=== PATIENT | female | born 1985 | race Caucasian/White ===

== ENCOUNTER 2020-06-22 08:59 | Outpatient (REF) | payer MEDICAID, SELFPAY ==
[2020-06-23 05:05] LABS: CT PCR NOT DETECTED (Not Detect.); NG PCR NOT DETECTED (Not Detect.)
[2020-06-25 02:16] LABS: HPV mRNA E6/E7 Not Detected (Not Detected)
== END 2020-06-22 09:00 | disposition home or self-care (01) ==
LOC: HO.LAB 08:59
PROVIDERS: Visit Provider Obstetrics & Gynecology
DX: Z01.411 Encounter for gynecological examination (general) (routine) with abnormal findings (principal); N92.1 Excessive and frequent menstruation with irregular cycle; N84.0 Polyp of corpus uteri
CPT/HCPCS: 87491; 87591; 87624; 88142; 99212

== ENCOUNTER → 2020-08-03 10:43 | Outpatient (BNVA) | payer MEDICAID, SELFPAY | PROVIDERS: Visit Provider Obstetrics & Gynecology | DX: N92.1 Excessive and frequent menstruation with irregular cycle (principal); N84.0 Polyp of corpus uteri | CPT/HCPCS: 99212 ==

== ENCOUNTER 2020-08-05 09:04 | Day surgery (SDC) | payer MEDICAID, SELFPAY ==
[2020-07-29 20:19] VITALS: BMI 25.4
[2020-07-29 20:34] VITALS: BMI 41.3
[2020-07-29 20:35] VITALS: BMI 18.8; BMI 41.3
--- NOTE | 2020-08-03 14:03 | HO.ANESPROP2 ---
Documented by User: Estelita Burr 08/03/20 14:16 HPI - Anesthesia Eval Consult details Narrative: 35yo F for D&C Diagnostic Hysteroscopy,poss polypectomy/myomectomy [facility] Past Medical History Medical History Anemia Surgical History Surgical History History of bilateral tubal ligation Social History Social History Alcohol intake: current Alcohol intake frequency: holidays/special occasions only Smoking Status: Never smoker Use of substances other than those prescribed or required for medical reasons: Yes Substance Use Type: Marijuana Substance Use Frequency: Daily Advance Directives: No Advance Directives Information Provided: No Advance Directives on File: No Sexual orientation: Straight/Heterosexual Gender identity: female Meds Allergies Allergy/AdvReac Type Severity Reaction Status Date / Time No Known Allergies AdvReac Unknown UNKNOWN Verified 07/29/20 20:22 Home Medications Medication Instructions Recorded Confirmed Type calcium phos,dibas-vitamin D3 1 tab PO DAILY 07/29/20 08/03/20 History [Vitamin D (with calcium)] Exam Exam Date and Time: August 03, 2020 1403 Height,Weight and Vital Signs: Height 5 ft 3 in Weight 48.081 kg Pertinent Lab Results Pertinent Lab Results: Laboratory Tests 04/21/20 09:30 WBC 9.7 Hgb 13.4 Hct 40.0 Plt Count 232 Assessment and Plan Assessment Anesthesia Assessment: Chart Reviewed Documented by User: Jamil Briceno 08/05/20 11:09 PMF Past Medical History Medical History Anemia Family History Family history of problems with anesthesia: No Surgical History Surgical History History of bilateral tubal ligation History of Problems with Anesthesia: No Social History Social History (Reviewed 08/03/20 @ 14:15 by Estelita Wahl Alcohol intake: current Alcohol intake frequency: holidays/special occasions only Smoking Status: Never smoker Use of substances other than those prescribed or required for medical reasons: Yes Substance Use Type: Marijuana Substance Use Frequency: Daily Advance Directives: No Advance Directives Information Provided: No Advance Directives on File: No Sexual orientation: Straight/Heterosexual Gender identity: female Meds Allergies Allergy/AdvReac Type Severity Reaction Status Date / Time No Known Allergies AdvReac Unknown UNKNOWN Verified 07/29/20 20:22 Home Medications Medication Instructions Recorded Confirmed Type calcium phos,dibas-vitamin D3 1 tab PO DAILY 07/29/20 08/03/20 History [Vitamin D (with calcium)] Assessment and Plan Assessment Anesthesia Assessment: Anesthesia Plan Discussed and Chart Reviewed Final Anesthetic Review NPO: Yes ASA Class: II Final Preanesthetic Review: No Changes in Pt Med Stat, Meds/Allgs Chart Reviewed, Consent Obtained/Reviewed and Anes Risks/Benef Reviewed Patient Risk: Low Procedure Risk: Low Anesthetic Plan Anesthetic Plan: GA Disposition: Standard PACU
[2020-08-05] VITALS (10 sets, daily range): BP systolic 91–108; BP diastolic 48–70; PULSE 59–76; RESP 16–18; TEMP 36.4–36.8; O2SAT 96–100
[2020-08-05 09:29] LABS: UPreg QC Valid YES; Urine Pregnancy NEGATIVE (NEGATIVE)
[2020-08-05] MEDS: Lactated Ringers 1,000 ML 100 ML IVCONT (09:34)
--- NOTE | 2020-08-05 10:51 | MHC.SHP ---
Pre-Procedural Eval Section A The patient is an INPATIENT: No Changes since office visit: No Cold of Flu in the past 2 weeks, No New Medical Problems, No Changes in Medication and No Patient answered all questions The History & Physical has been completed within 30 days and I have reviewed it.: Yes Section B Chief Complaint: frequent bleeding Allergies: Allergies Allergy/AdvReac Type Severity Reaction Status Date / Time No Known Allergies AdvReac Unknown UNKNOWN Verified 07/29/20 20:22 Plan Diagnosis/Plan: Unchanged Patient has been examined and remains a candidate for the planned procedure
--- NOTE | 2020-08-05 11:47 | PM.OP ---
Brief Operative Note Date of Service: 08/05/20 Pre-op diagnosis: Endometrial polyp by US Post-op diagnosis: same Procedure: Hysteroscopy D&C, Polypectomy Surgeon: Davin Manzano MD Anesthesia: MAC Estimated blood loss (mL): 0 Pathology: other (Endometrial Scrapping. Polyp) Condition: stable Disposition: PACU
--- NOTE | 2020-08-05 11:48 | W.PM.OPN ---
Operative Note Operative Note Date of Service: 08/05/20 Narrative: Preop Diagnosis: Endometrial polyp by US Operation: Diagnostic Hysteroscopy, Dilataion & Curettage and polypectomy Post Op Diagnosis: Endometrial Polyp QBL: Minimal Anesthesia: MAC Surgeon: Davin Manzano MD Insurance Law Specialist: None Complication: None Pathology: Endometrial Scrapings, Endometrial polyp Complication: None Pathology: Endometrial Scrapings, Endometrial polyp Procedure: The patient was put in the dorsal lithotomy position, scrubbed, and draped in the usual manner. A sterile speculum was inserted in the patient's vagina. The anterior lip of the cervix was grasped with a single tooth tenaculum. The cervix was dilated up to 5 mm, then the scope was inserted in the patient's uterus. Inspection revealed endometrial polyp. The Myosure Reach device was used; it was introduced through the operative channel and polypectomy done with no complications. At the end of the procedure, all instruments were taken out of the patient uterine and vaginal cavity. The single tooth tenaculum was removed and homeostasis was assured using pressure,. The patient tolerated the procedure well and was transferred to the PACU in a stable condition.
[2020-08-05] MEDS: fentaNYL citrate/PF 100 MCG/2 ML VIAL 50 MCG IVPUSH ×2 (12:00→12:20)
[2020-08-05] MEDS: Ketorolac Tromethamine 15 MG/ML VIAL IVPUSH (12:07)
[2020-08-05] MEDS: oxyCODONE HCl Immed Release 5 MG TABLET PO (12:08)
[2020-08-05] MEDS: ondansetron HCL 4 MG/2 ML VIAL IVPUSH (12:38)
--- NOTE | 2020-08-05 13:21 | HO.POSTANES ---
Post Anesthesia Evaluation Post Anesthesia Evaluation Vital Signs: Vital Signs Temp Pulse Resp BP Pulse Ox 08/05/20 12:56 97.7 F 62 18 100/48 L 100 08/05/20 12:41 59 18 91/51 L 100 08/05/20 12:25 67 18 108/53 L 97 08/05/20 12:20 18 08/05/20 12:11 65 18 102/58 L 96 08/05/20 12:06 63 18 108/70 97 08/05/20 12:01 66 18 100/68 100 08/05/20 12:00 18 08/05/20 11:56 97.6 F 66 18 104/57 L 100 08/05/20 09:35 98.3 F 76 16 94/49 L 98 Anesthesia: General Mental Status: Awake Pain Control: Satisfactory Nausea/Vomiting: None Hydration: Adequate Anesthesia-Related Issues: No Anes. Related Issues
== END 2020-08-05 13:25 | disposition home or self-care (01) ==
PROVIDERS: Visit Provider Obstetrics & Gynecology
PROC: 0UDB8ZX Extraction of Endometrium, Via Natural or Artificial Opening Endoscopic, Diagnostic (ICD-10-PCS; CPT 58558; principal; 2020-08-05 11:10)
DX: N92.1 Excessive and frequent menstruation with irregular cycle (principal); N84.0 Polyp of corpus uteri; D64.9 Anemia, unspecified; Z98.51 Tubal ligation status; F12.90 Cannabis use, unspecified, uncomplicated
CPT/HCPCS: 58558; 81025; 88305; J1885; J2250; J2405; J3010

== ENCOUNTER → 2020-08-08 10:38 | Outpatient (BNVA) | payer MEDICAID, SELFPAY | PROVIDERS: Visit Provider Obstetrics & Gynecology | DX: Z76.89 Persons encountering health services in other specified circumstances (principal) ==

== ENCOUNTER → 2020-08-17 14:09 | Outpatient (BNVA) | payer MEDICAID, SELFPAY | PROVIDERS: Visit Provider Obstetrics & Gynecology | DX: Z76.89 Persons encountering health services in other specified circumstances (principal) ==

== ENCOUNTER → 2020-09-07 10:48 | Outpatient (BNVA) | payer MEDICAID, SELFPAY | PROVIDERS: Visit Provider Obstetrics & Gynecology | DX: Z76.89 Persons encountering health services in other specified circumstances (principal) ==

== ENCOUNTER 2020-09-07 11:23 | Outpatient (REF) | payer MEDICAID, SELFPAY | END 2020-09-07 11:24 | disposition home or self-care (01) | LOC: HO.LAB 11:23 | PROVIDERS: Visit Provider Internal Medicine | DX: Z20.822 Contact with and (suspected) exposure to COVID-19 (principal) | CPT/HCPCS: 36415; C9803; U0003 ==

== ENCOUNTER → 2020-09-12 10:58 | Outpatient (BNVA) | payer MEDICAID, SELFPAY | PROVIDERS: Visit Provider Obstetrics & Gynecology ==

== ENCOUNTER 2020-10-07 10:49 | Outpatient (REF) | payer MEDICAID, SELFPAY ==
--- NOTE | ~2020-10-07 | XR_ITS ---
EXAMINATION: CERVICAL SPINE AND LEFT SHOULDER X-RAY CLINICAL INFORMATION: Injury. Pain. COMPARISON: None TECHNIQUE: 3 views of the cervical spine and 4 views of the left shoulder FINDINGS: Left shoulder: Bone alignment is normal. No fracture or dislocation is seen. Joint spaces are normal. Soft tissues are normal. Cervical spine: Bone alignment is normal. No fracture or dislocation is seen. Prevertebral soft tissues are normal. XR/XR shoulder LT min 2V IMPRESSION: Unremarkable exam.
--- NOTE | ~2020-10-07 | XR_ITS ---
EXAMINATION: CERVICAL SPINE AND LEFT SHOULDER X-RAY CLINICAL INFORMATION: Injury. Pain. COMPARISON: None TECHNIQUE: 3 views of the cervical spine and 4 views of the left shoulder FINDINGS: Left shoulder: Bone alignment is normal. No fracture or dislocation is seen. Joint spaces are normal. Soft tissues are normal. Cervical spine: Bone alignment is normal. No fracture or dislocation is seen. Prevertebral soft tissues are normal. XR/XR cervical spine 3V IMPRESSION: Unremarkable exam.
== END 2020-10-07 10:50 | disposition home or self-care (01) ==
LOC: HO.XRAY 10:49
PROVIDERS: Visit Provider Emergency Medicine
DX: S49.92XA Unspecified injury of left shoulder and upper arm, initial encounter (principal); S19.9XXA Unspecified injury of neck, initial encounter
CPT/HCPCS: 72040; 73030

== ENCOUNTER 2020-10-21 09:45 | Outpatient (REF) | payer MEDICAID, SELFPAY | END 2020-10-21 09:46 | disposition home or self-care (01) | LOC: HO.LAB 09:45 | PROVIDERS: Visit Provider Internal Medicine | DX: Z20.822 Contact with and (suspected) exposure to COVID-19 (principal) | CPT/HCPCS: 36415; C9803; U0003; U0005 ==

== ENCOUNTER 2020-12-14 08:35 | Outpatient (REF) | payer MEDICAID, SELFPAY | END 2020-12-14 08:36 | disposition home or self-care (01) | LOC: HO.LAB 08:35 | PROVIDERS: Visit Provider Obstetrics & Gynecology | DX: Z32.02 Encounter for pregnancy test, result negative (principal); N85.01 Benign endometrial hyperplasia | CPT/HCPCS: 58100; 88305 ==

== ENCOUNTER → 2020-12-28 11:48 | Outpatient (BNVA) | payer MEDICAID, SELFPAY | PROVIDERS: Visit Provider Obstetrics & Gynecology ==

== ENCOUNTER 2021-01-04 11:30 | Outpatient (REF) | payer MEDICAID, SELFPAY ==
[2021-01-04 11:51] LABS: COVID-19 Test Negative (Negative); IDNOW Serial# 55D5AD1C
== END 2021-01-04 11:31 | disposition home or self-care (01) ==
LOC: HO.LAB 11:30
PROVIDERS: Visit Provider Internal Medicine
DX: Z20.822 Contact with and (suspected) exposure to COVID-19 (principal)
CPT/HCPCS: 36415; 87635; C9803

== ENCOUNTER 2021-07-12 12:03 | Outpatient (REF) | payer MEDICAID, SELFPAY ==
[2021-07-15 02:47] LABS: HPV mRNA E6/E7 rflx Not Detected (Not Detected)
== END 2021-07-12 12:04 | disposition home or self-care (01) ==
LOC: HO.LAB 12:03
PROVIDERS: Visit Provider Obstetrics & Gynecology
DX: Z01.419 Encounter for gynecological examination (general) (routine) without abnormal findings (principal); Z11.51 Encounter for screening for human papillomavirus (HPV); N85.01 Benign endometrial hyperplasia; N92.1 Excessive and frequent menstruation with irregular cycle
CPT/HCPCS: 58100; 87624; 88142; 88305

== ENCOUNTER → 2021-07-26 11:41 | Outpatient (BNVA) | payer MEDICAID, SELFPAY | PROVIDERS: Visit Provider Obstetrics & Gynecology ==

== ENCOUNTER 2022-02-21 16:23 | Outpatient (REF) | payer MEDICAID, SELFPAY ==
--- NOTE | ~2022-02-21 | XR_ITS ---
EXAMINATION: XR HAND, RIGHT CLINICAL INFORMATION: Injury to ring finger metacarpophalangeal joint. COMPARISON: None TECHNIQUE: PA, lateral, and oblique views of the right hand. FINDINGS: There is no evidence of acute fracture or dislocation of the right hand. Joint spaces are maintained. No radiopaque foreign body. No significant soft tissue swelling. XR/XR hand RT min 3V IMPRESSION: No acute fracture or dislocation of the right hand.
== END 2022-02-21 16:24 | disposition home or self-care (01) ==
LOC: HO.XRAY 16:23
PROVIDERS: Absent Provider Internal Medicine; PCP Internal Medicine; Visit Provider Emergency Medicine
DX: S69.91XA Unspecified injury of right wrist, hand and finger(s), initial encounter (principal)
CPT/HCPCS: 73130

== ENCOUNTER 2022-05-22 10:50 | Outpatient (REF) | payer MEDICAID, SELFPAY ==
--- NOTE | ~2022-05-22 | MM_ITS ---
EXAMINATION: MM DIAGNOSTIC DIGITAL MAMMOGRAPHY, BILATERAL US DIAGNOSTIC ULTRASOUND BREAST, RIGHT CLINICAL INFORMATION: 37-year-old with intermittent pulling sensation lateral right implant. Implants placed approximately one year ago, [facility]. No prior breast imaging. TC score 13%. COMPARISON: None (current study represents initial baseline exam). TECHNIQUE: Standard bilateral CC and MLO views are obtained along with computer-aided assisted detection (CAD). Patient declined implant displaced views. Ultrasound right breast is performed targeted to the lateral breast using grayscale imaging and color Doppler without and with harmonics. FINDINGS: The breasts are heterogeneously dense, which may obscure small masses (ACR BI-RADS breast composition Category c). There are bilateral implants. The implant contours are smooth and grossly symmetric. There is no free silicone demonstrated. There is no visible mass or architectural abnormality or abnormal calcifications. The patient declined implant displaced view with inherent limitations in assessment of the bilateral breast parenchyma. The axilla and skin contours are unremarkable. No skin thickening or coarsening of the Jelani's ligaments. Ultrasound demonstrates no cystic or solid mass or architectural abnormality. No skin thickening or edema tracking in soft tissue planes. The implant contour appears normal. No ultrasound features to suggest free silicone. Results are discussed with the patient at time of visit. MM/MM diagnostic mammo BI IMPRESSION: -Bilateral implant contours are smooth and symmetric. No visible free silicone. -No inflammatory changes on mammography or targeted ultrasound ultrasound. -Breast parenchyma evaluation limited (implant displaced views not performed). ASSESSMENT: BI-RADS 2: Benign RECOMMENDATION: -Patient should be managed based on the clinical impression. If clinically indicated, plastic surgery consult may be considered for additional clinical evaluation and management recommendation. Similarly, breast MRI may be considered if there is clinical indication for further assessment of implant integrity. -Routine annual mammography screening, beginning age 40, or earlier as clinical risk factors warrant. This patient's information was entered into a reminder system with a target due date for their next mammogram.
== END 2022-05-22 10:51 | disposition home or self-care (01) ==
LOC: HO.MAMMO 10:50
PROVIDERS: PCP Internal Medicine; Visit Provider Internal Medicine
DX: N64.4 Mastodynia (principal)
CPT/HCPCS: 76642; 77062; 77066

== ENCOUNTER 2022-09-11 08:47 | Outpatient (REF) | payer MEDICAID, SELFPAY ==
[2022-09-11 16:13] LABS: CT PCR NOT DETECTED (Not Detect.); NG PCR NOT DETECTED (Not Detect.)
[2022-09-12 12:54] LABS: BV Int Neg Control Negative (Negative); BV Int Pos Control Positive (Positive)
== END 2022-09-11 08:48 | disposition home or self-care (01) ==
LOC: HO.LAB 08:47
PROVIDERS: PCP Internal Medicine; Visit Provider Advanced Practice Midwife
DX: Z11.3 Encounter for screening for infections with a predominantly sexual mode of transmission (principal); N89.8 Other specified noninflammatory disorders of vagina; R10.2 Pelvic and perineal pain; N92.6 Irregular menstruation, unspecified
CPT/HCPCS: 0353U; 87480; 87510; 87624; 87660; 88142

== ENCOUNTER 2022-09-11 09:16 | Outpatient (REF) | payer MEDICAID, SELFPAY ==
[2022-09-15 03:18] LABS: HPV mRNA E6/E7 rflx Not Detected (Not Detected)
== END 2022-09-11 09:17 | disposition home or self-care (01) ==
LOC: HO.LNP 09:16
PROVIDERS: Visit Provider Advanced Practice Midwife
DX: Z01.419 Encounter for gynecological examination (general) (routine) without abnormal findings (principal); Z11.51 Encounter for screening for human papillomavirus (HPV)
CPT/HCPCS: 87624; 88142

== ENCOUNTER 2022-09-19 12:14 | Outpatient (REF) | payer MEDICAID, SELFPAY ==
--- NOTE | ~2022-09-19 | US_ITS ---
EXAMINATION: US PELVIS CLINICAL INFORMATION: Pelvic and perineal pain. COMPARISON: Ultrasound from 04/21/2020 TECHNIQUE: Ultrasound of the pelvis is performed using both transabdominal and transvaginal transducers along with Doppler. Transvaginal imaging is performed due to inadequate visualization transabdominally. FINDINGS: Uterus: The uterus is anteverted and measures 8.6 x 4.5 x 5.9 cm. The double wall endometrial thickness is 12 mm. The uterus is smooth in contour and has normal myometrial echogenicity. No visible fibroid. Adnexa: Both ovaries are visualized. There is normal color flow to the adnexa. There is no ovarian torsion. There is no pelvic ascites or fluid collection. Prominence of the pelvic vasculature noted. Right ovary measures 3.5 x 2.9 x 3.1 cm. Complex cyst measures 2.3 x 1.4 x 1.7 cm. Left ovary measures 2.9 x 1.6 x 2.4 cm. US/US pelvic and transvaginal IMPRESSION: Complex right ovarian cyst, likely a hemorrhagic cyst. No specific follow-up recommended. Evidence of pelvic congestion.
[2022-09-19 17:10] LABS: Thyroid Stimulating Hormone 0.65 uIU/mL (0.32-4.0)
[2022-09-19 17:11] LABS: Syphilis Screen Nonreactive (Nonreactive)
[2022-09-21 06:23] LABS: HBc Num1 0.05 S/CO (0.00-0.79); HIV AB/AG Nonreactive (Nonreactive); HIV Num 1 0.05 S/CO (0.00-0.99); Hepatitis B Core Antibody Nonreactive (Nonreactive); ~Hepatitis C Antibody Nonreactive (Nonreactive)
== END 2022-09-19 12:15 | disposition home or self-care (01) ==
LOC: HO.HMGCX 12:14
PROVIDERS: PCP Internal Medicine; Visit Provider Advanced Practice Midwife
DX: Z11.4 Encounter for screening for human immunodeficiency virus [HIV] (principal); R10.2 Pelvic and perineal pain; N92.6 Irregular menstruation, unspecified; Z20.2 Contact with and (suspected) exposure to infections with a predominantly sexual mode of transmission
CPT/HCPCS: 36415; 76830; 76856; 84443; 86704; 86780; 86803; 87389

== ENCOUNTER → 2022-10-17 11:40 | Outpatient (BNVA) | payer MEDICAID, SELFPAY | PROVIDERS: PCP Internal Medicine; Visit Provider Advanced Practice Midwife | DX: Z71.2 Person consulting for explanation of examination or test findings (principal); N92.6 Irregular menstruation, unspecified; N83.291 Other ovarian cyst, right side | CPT/HCPCS: 99212 ==

== ENCOUNTER → 2022-10-31 09:27 | Outpatient (BNVA) | payer MEDICAID, SELFPAY | PROVIDERS: PCP Internal Medicine; Visit Provider Advanced Practice Midwife | DX: Z30.430 Encounter for insertion of intrauterine contraceptive device (principal) | CPT/HCPCS: 58300; 81025; J7298 ==

== ENCOUNTER 2022-11-14 12:59 | Outpatient (REF) | payer MEDICAID, SELFPAY ==
--- NOTE | ~2022-11-14 | US_ITS ---
EXAM: Pelvic Ultrasound CLINICAL INDICATION: Complex right ovarian cyst COMPARISON: Pelvic ultrasound 09/19/2022 TECHNIQUE: The pelvis was evaluated using transabdominal and transvaginal imaging. FINDINGS: The uterus measures 7.1 x 3.8 x 4.8 cm in longitudinal by AP by transverse dimension. Linear echogenic focus within the endometrium is consistent with a properly placed IUD. Evaluation of the endometrium is limited secondary to artifact from IUD, however, the endometrium does not appear grossly thickened. The left ovary measures approximately 2.8 x 2.0 x 2.3 cm and is normal. The right ovary measures approximately 3.3 x 2.5 x 2.6 cm and contains a 1.7 cm mildly complex cyst and a 1.2 cm relatively simple appearing cyst. There is no free fluid in the pelvis. US/US pelvic and transvaginal IMPRESSION: 1. IUD in expected orientation. 2. Small right ovarian cysts.
== END 2022-11-14 13:00 | disposition home or self-care (01) ==
LOC: HO.HMGCX 12:59
PROVIDERS: PCP Internal Medicine; Visit Provider Advanced Practice Midwife
DX: N83.291 Other ovarian cyst, right side (principal)
CPT/HCPCS: 76830; 76856

== ENCOUNTER → 2022-12-05 10:59 | Outpatient (BNVA) | payer MEDICAID, SELFPAY | PROVIDERS: PCP Internal Medicine; Visit Provider Advanced Practice Midwife | DX: N83.291 Other ovarian cyst, right side (principal); Z71.2 Person consulting for explanation of examination or test findings | CPT/HCPCS: 99212 ==

== ENCOUNTER 2023-02-06 12:47 | Outpatient (REF) | payer MEDICAID, SELFPAY ==
--- NOTE | ~2023-02-06 | US_ITS ---
EXAMINATION: US PELVIS CLINICAL INFORMATION: Follow-up right ovarian cyst COMPARISON: Previous pelvic ultrasound most recent August and October 2022 TECHNIQUE: Ultrasound of the pelvis is performed using both transabdominal and transvaginal transducers along with Doppler. Transvaginal imaging is performed due to inadequate visualization transabdominally. FINDINGS: The uterus is anteverted and measures 8.8 x 3.5 x 5 cm in dimension. No focal uterine lesion. There is an IUD in the uterus in satisfactory position. The endometrium does not appear thickened. The ovaries are normal. The right ovary measures 3.5 x 2.4 x 2.8 cm. The left ovary measures 3.3 x 2 x 2.4 cm. Previously identified right ovarian cysts are no longer seen. There is no fluid in the pelvis. US/US pelvic and transvaginal IMPRESSION: IUD in the uterus in satisfactory position. Otherwise unremarkable exam.
== END 2023-02-06 12:48 | disposition home or self-care (01) ==
LOC: HO.HMGCX 12:47
PROVIDERS: PCP Internal Medicine; Visit Provider Advanced Practice Midwife
DX: N83.291 Other ovarian cyst, right side (principal)
CPT/HCPCS: 76830; 76856

== ENCOUNTER → 2023-02-20 10:06 | Outpatient (BNVA) | payer MEDICAID, SELFPAY | PROVIDERS: PCP Internal Medicine; Visit Provider Advanced Practice Midwife | DX: Z71.2 Person consulting for explanation of examination or test findings (principal); Z97.5 Presence of (intrauterine) contraceptive device | CPT/HCPCS: 99212 ==

== ENCOUNTER 2023-03-18 19:06 | Emergency (ER) | payer OTHER, SELFPAY ==
--- NOTE | ~2023-03-18 | XR_ITS ---
EXAMINATION: 1. Right foot. 2. Right ankle. CLINICAL INFORMATION: Twisted. Pain. COMPARISON: Right foot 07/28/2017 TECHNIQUE: 1. Right foot. 3 views 2. Right ankle. 3 views FINDINGS: 1. Right foot. No fracture. No dislocation. Bone and joint are normal. 2. Right ankle. No fracture. No dislocation. Ankle mortise is congruent. XR/XR foot RT min 3V IMPRESSION: 1. Right foot. Normal. 2. Right ankle. Normal.
--- NOTE | ~2023-03-18 | XR_ITS ---
EXAMINATION: 1. Right foot. 2. Right ankle. CLINICAL INFORMATION: Twisted. Pain. COMPARISON: Right foot 07/28/2017 TECHNIQUE: 1. Right foot. 3 views 2. Right ankle. 3 views FINDINGS: 1. Right foot. No fracture. No dislocation. Bone and joint are normal. 2. Right ankle. No fracture. No dislocation. Ankle mortise is congruent. XR/XR ankle RT min 3V IMPRESSION: 1. Right foot. Normal. 2. Right ankle. Normal.
[2023-03-18 19:44] VITALS: BP 102/48; PULSE 81; RESP 18; TEMP 36; O2SAT 99; BMI 21.9
--- NOTE | 2023-03-18 19:46 | ED.GENADULT ---
HPI - General Adult General Chief complaint: Dental/Oral Stated complaint: dental pain Time Seen by Provider: 03/18/23 22:24 Source: patient, RN notes reviewed and old records reviewed Mode of arrival: ambulatory History of Present Illness HPI narrative: 38-year-old female with no significant past medical history presenting to the ED complaining of right lower molar pain x 2 days. 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 Admits had been years placed 4 months ago, denies more recent dental procedures, injury, drainage. Does report gingival friability. Denies hearing loss, ear pain, numbness, tingling, weakness, facial swelling, head trauma or LOC Onset (ago): day(s) Related Data Home Medications Medication Instructions Recorded Confirmed levonorgestrel 21 mcg/24 hours (8 intrauterine 12/05/22 yrs) 52 mg intrauterine device (Mirena) Previous Rx's Medication Instructions Recorded amoxicillin 875 mg-potassium 1 tab PO BID 7 days #14 tabs 03/18/23 clavulanate 125 mg tablet ibuprofen 800 mg tablet (IBU) 800 mg PO Q8H PRN pain #14 tabs 03/18/23 Allergies Allergy/AdvReac Type Severity Reaction Status Date / Time No Known Allergies AdvReac Unknown UNKNOWN Verified 03/18/23 19:44 Review of Systems Review of Systems: Constitutional: No Fever, No Chills ENT/Mouth: No Ear Pain, No Nasal Congestion, +dental pain, No sore throat, No Rhinorrhea, No Swallowing Difficulty Cardiovascular: No Chest Pain, No SOB Respiratory: No Cough, No Sputum, No Wheezing Gastrointestinal: No Nausea, No Vomiting, No Diarrhea, No Constipation, No Abdominal pain Musculoskeletal: + joint pain, No Myalgias, + Joint Swelling Skin: No Skin Lesions, No rash Neuro: No Weakness, No Numbness, No Paresthesias Yes all other systems are reviewed and are negative Constitutional: Constitutional: Reports as per [facility] Past Medical History Attestation statement: The following information was validated with the patient. Source: old records reviewed Medical History Abnormal Pap smear of cervix Anemia Dysplasia of cervix, low grade (SANCHEZ 1) Surgical History H/O breast augmentation History of bilateral tubal ligation History of dilatation and curettage Family History Family History Maternal Grandmother Colon cancer Maternal Aunt History of breast cancer Social History Social History Alcohol intake: never Patient Tobacco Use Status: Never used Tobacco Smoked in Last 30 Days: No Use of substances other than those prescribed or required for medical reasons: No Substance Use Type: Marijuana Advance Directives: No Advance Directives Information Provided: No Sexual orientation: Straight/Heterosexual Gender identity: Female Physical Exam ED Vital Signs: Vital Signs - 24 hr 03/18/23 19:44 03/18/23 22:00 Temperature 96.8 F 98.6 F Pulse Rate 81 75 Respiratory Rate 18 16 Blood Pressure 102/48 L 108/55 L Pulse Oximetry 99 93 Oxygen Delivery Method Room Air Room Air BMI result Body Mass Index 21.9 Const General: cooperative, healthy appearing and no acute distress Orientation/consciousness: patient oriented x3 Limitations: no limitations HENMT Other: No appreciable facial swelling. Right lower 3rd molar with gingival swelling and tenderness, no active bleeding, no fluctuance/induration. Head: Yes normal to inspection and Yes atraumatic Ears: hearing grossly normal bilaterally General nose exam: Normal external nose present Face and sinus: Yes normal facial exam Eyes General: appearance normal, both eyes and all related structures EOM: EOMs intact bilaterally Neck Neck: Yes normal visual inspection and Yes no meningeal signs Resp Effort & Inspection: normal respiratory effort and no respiratory distress Cardio Rate: regular rate Heart sounds: S1 normal heart sound present and S2 normal heart sound present Skin Rashes: no rashes Wounds: no wounds Neuro General: patient oriented x3, tone normal and no meningeal signs Gait exam (Neuro): Normal gait present Extrem Other: Right medial malleolus with slight swelling and tenderness to palpation. No appreciable deformity. + proximal right foot with mild tenderness. No erythema/ecchymosis. No crepitus. Neurovascularly intact. Limited dorsiflexion of ankle secondary to pain Course Course Course Narrative: RME- 38 year old female presents for evaluation of dental pain that started yesterday XR foot RT min 3V/XR ankle RT min 3V IMPRESSION: 1.? Right foot. Normal. 2.? Right ankle. Normal. > Wolfgang wrap applied for comfort and stability Results discussed with patient including worrisome signs and symptoms and strict return precautions, and when to return to the emergency department. They verbalized understanding and feel safe for discharge at this time. Medications Administered Discontinued Medications Generic Name Dose Route Start Last Admin Trade Name Paulq PRN Reason Stop Dose Admin Ketorolac Tromethamine 30 mg 03/18/23 22:48 03/18/23 22:55 Ketorolac Tromethamine 30 Mg/Ml Vial IM 03/18/23 22:49 30 mg ONCE ONE Administration Medical Decision Making Medical Decision Making MDM Narrative: 38-year-old female with no significant past medical history presenting to the ED complaining of right lower molar pain x 2 days. 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 On exam vital signs stable, NAD, nontoxic appearing, physical exam as noted above. Concerns for dental/gingival abscess/infection vs ankle/foot sprain vs fracture. Low suspicion for [employer], retropharyngeal abscess, otitis, septic joint/arthritis or dislocation Plan: IM Toradol, x-ray, p.o. antibiotic Please refer to course for remaining clinical decision making, interpretation of labs/imaging results, and discussions with consultants and/or family members. Differential Diagnosis Differential Diagnoses: The differential diagnosis associated with the presentation includes As above Independent Interpretation I performed an independent interpretation of an: Plain X-Ray Radiology Impression Discussion of test interpretation with radiology: I have reviewed the radiologist's reading. External Record Review External record reviewed: Inpatient record, Office record, Outpatient record, Prior outpatient labs, Prior outpatient radiology, Primary care record and Outside ED record Tests considered The following testing was considered but not selected: As above Prescription Management I considered prescription management with: Pain Medication Discharge Plan Discharge Clinical Impression: Dental infection, Ankle sprain Patient Disposition: Home, Self-Care Instructions: Ankle Sprain (DC), Dental Abscess (ED) Additional Instructions: Augmentin is antibiotic please take as prescribed You need to follow-up with your dentist Your x-ray does not show a fracture, you would be sprained her ankle, where Wolfgang wrap for comfort and stability Ice and elevate Take Tylenol Motrin for pain/swelling If symptoms persist or worsen return to the Prescriptions: New amoxicillin-pot clavulanate 875-125 mg tablet 1 tab PO BID 7 Days Qty: 14 0RF ibuprofen [IBU] 800 mg tablet 800 mg PO Q8H PRN (Reason: pain) Qty: 14 0RF No Action Mirena 21 mcg/24 hours (8 yrs) 52 mg intrauterine device intrauterine Referrals: Shane Ramos [Dentist] - Agustin Pagan DMD [Dentist] - Ash Boyer DMD [Dentist] - Shawn Madrid MD [Primary Care Provider] - Stand Alone Forms: Work/School Release Interventions: ED Discharge Assessment Last Done: 03/19/23 00:00 Discharge Date/Time: 03/19/23 00:16
[2023-03-18 22:00] VITALS: BP 108/55; PULSE 75; RESP 16; TEMP 37; O2SAT 93
[2023-03-18] MEDS: Ketorolac Tromethamine 30 MG/ML VIAL IM (22:55)
--- NOTE | 2023-03-18 23:58 | PC.NURSE ---
patient in the process of being discharged patient will be having her right ankle to be wrapped and patient will be free to go
== END 2023-03-19 00:16 | disposition home or self-care (01) ==
PROVIDERS: Emergency Provider Internal Medicine; PCP Internal Medicine
DX: K04.7 Periapical abscess without sinus (principal); S93.401A Sprain of unspecified ligament of right ankle, initial encounter; X50.1XXA Overexertion from prolonged static or awkward postures, initial encounter; K08.89 Other specified disorders of teeth and supporting structures; Y93.89 Activity, other specified; Y92.480 Sidewalk as the place of occurrence of the external cause; Y99.0 Civilian activity done for income or pay
CPT/HCPCS: 73610; 73630; 96372; 99284; J1885

== ENCOUNTER 2023-06-12 15:08 | Outpatient (REF) | payer OTHER, SELFPAY ==
[2023-06-12 16:07] LABS: Appearance Urine Clear; Color Urine Yellow; Glucose Urine UA Negative (Negative); Leukocyte Esterase Urine Negative (Negative); Nitrite Urine Negative (Negative); Urine Blood Negative (Negative); Urine Ketones Negative (Negative); Urine Protein Negative (Neg-Trace)
[2023-06-12 16:09] LABS: Bacteria Urine 1+ (None Seen); Hyaline Casts Urine 0-2 /LPF (0-2); RBC Urine 0-2 /HPF (0-2); WBC Urine 0-5 /HPF (0-5)
[2023-06-12 16:37] LABS: Anion Gap 13 (12-20); Blood Urea Nitrogen 9 mg/dL (9-16); Calcium 9.7 mg/dL (8.4-10.2); Carbon Dioxide 26 mmol/L (22-29); Chloride 102 mmol/L (96-108); Estimated Glomerular Filt Rate > 60; Glucose Random 74 mg/dL (60-115); Potassium 3.9 mmol/L (3.3-5.1); Sodium 137 mmol/L (135-145)
[2023-06-13 20:03] LABS: RPR Rapid Plasma Reagin NON-REACTIVE (NON-REACTIVE)
[2023-06-14 07:47] LABS: HIV AB/AG Nonreactive (Nonreactive); HIV Num 1 0.04 S/CO (0.00-0.99); ~HepC Num1 0.07 S/CO (0.00-0.79); ~Hepatitis C Antibody Nonreactive (Nonreactive)
== END 2023-06-12 15:09 | disposition home or self-care (01) ==
LOC: HO.HHCL 15:08
PROVIDERS: Visit Provider Nurse Practitioner Primary Care
DX: N12 Tubulo-interstitial nephritis, not specified as acute or chronic (principal); E87.6 Hypokalemia; Z20.2 Contact with and (suspected) exposure to infections with a predominantly sexual mode of transmission
CPT/HCPCS: 36415; 80048; 81001; 86592; 86803; 87389